=== PATIENT | male | born 1970 | race Caucasian/White ===

== ENCOUNTER 2018-09-05 10:04 | Emergency (ER) | payer OTHER ==
[~2018-09-05] VITALS: Ht 177.8 cm; Wt 58.5 kg
[~2018-09-05 10:04] MED LIST: ATIVAN1 MG PO; KEFLEX500 MG PO; KEPPRA XR750 MG PO; LAMICTAL 25 MG25 M1; LAMICTAL XR100 MG; LAMICTAL XR200 MG PO; OXCARBAZEPINE300 M1; PREDNISONE 20 M20 M1 PO; ZOFRAN4 MG PO; ZONEGRAN100 MG
[2018-09-05] MEDS ORDERED: DILANTIN100 MG PO ×2 (10:26)
[2018-09-05 11:39] LABS: ABSOLUTE EOSINOPHILS 0.1 thou/uL (0.0-0.7); ABSOLUTE LYMPHOCYTES 1.3 thou/uL (0.8-5.3); ABSOLUTE MONOCYTES 0.5 thou/uL (0.0-1.2); ABSOLUTE NEUTROPHILS 6.5 thou/uL (1.6-8.1); BASOPHILS 0.5 %; EOSINOPHILS 0.8 %; HEMATOCRIT 40.7 % (42.0-52.0); HEMOGLOBIN 13.7 gm/dL (14.0-18.0); LYMPHOCYTES 15.4 %; MCH 32.2 pg (26.0-34.0); MCHC 33.8 g/dL (28.0-37.0); MCV 95.5 fL (80.0-100.0); NUCLEATED RBCS 0 /100WBC; PLATELET COUNT* 241 thou/uL (150-400); POLYS 77.3 %; RBC 4.26 mil/uL (4.50-6.00); RDW-CV 14.2 % (10.5-14.5); WBC 8.4 thou/uL (4.0-11.0)
[2018-09-05 11:47] LABS: APTT 29.6 Seconds (25.0-31.3); PROTIME 10.2 Seconds (9.20-11.50)
[2018-09-05 11:57] LABS: ALBUMIN 3.3 g/dL (3.4-5.0); ALKALINE PHOSPHATASE 146 U/L (46-116); ANION GAP 4 mmol/L (7-16); BUN 16 mg/dL (7-18); CALCIUM 8.5 mg/dL (8.5-10.1); CHLORIDE 106 mmol/L (98-107); CO2 32 mmol/L (21-32); GLUCOSE 95 mg/dL (70-99); MAGNESIUM 1.7 mg/dL (1.8-2.4); POTASSIUM 4.7 mmol/L (3.5-5.1); SGOT 16 U/L (15-37); SGPT 13 U/L (30-65); SODIUM 142 mmol/L (136-145); TOTAL BILIRUBIN 0.2 mg/dL (<0.1-1.0); TOTAL PROTEIN 7.4 g/dL (6.4-8.2); TROPONIN-I LEVEL <0.06 ng/mL (<0.06)
[2018-09-05 12:00] LABS: AMP/METHAMP Negative (Negative); BARBITURATES Negative (Negative); BENZODIAZEPINES Negative (Negative); COCAINE Negative (Negative); METHADONE Negative (Negative); OPIATES Negative (Negative); PCP Negative (Negative); THC Negative (Negative)
[2018-09-05 12:02] LABS: URINE BILIRUBIN NEGATIVE (Negative); URINE BLOOD TRACE (Negative); URINE CLARITY CLEAR; URINE COLOR YELLOW; URINE GLUCOSE-RANDOM NEGATIVE (Negative); URINE KETONES NEGATIVE (Negative); URINE LEUKOCYTES-REFLEX NEGATIVE (Negative); URINE NITRITE-REFLEX NEGATIVE (Negative); URINE PROTEIN NEGATIVE (Negative); URINE UROBILINOGEN 0.2 E.U./dl (0.2-1.0)
[2018-09-05 12:35] VITALS: BP 128/77
--- NOTE | 2018-09-05 14:18 | EKG ---
[place] [address] ELECTROCARDIOGRAM REPORT Name: CAMDEN MONTERO Room: [facility]#: [id number] Admission: 09/05/18 Attend Phys: Discharge: 09/05/18 Date of : 72 Report #: [id number] THIS REPORT FOR: //name// [facility] ED Test Date: 2018-09-05 Test Time: 11:17:53 Pat Name: CAMDEN MONTERO Department: Room: Gender: M Lay Out Carpenter: Cade GONZALES : 1970 Requested By: Jesus Alberto Shultz Order Number: [id number] MD: Markos Leon Measurements Intervals [place] Rate: 79 P: 74 [place]: 150 QRS: 76 QRSD: 87 T: 41 QT: 379 QTc: 435 Interpretive Statements Sinus rhythm Low voltage, extremity leads ST elev, probable normal early repol pattern No previous ECG available for comparison Electronically Signed On 09-05-2018 14:17:59 CDT by Markos Leon [email or web address] <ELECTRONICALLY SIGNED> By: Markos Leon MD, [facility] 09/05/18 1417 1117 16 Markos Leon MD, FACC /EPI
== END 2018-09-05 12:40 | disposition short-term general hospital (02) ==
LOC: M.ERS 10:04
PROVIDERS: Physician Assistant
DX: S06.5X0A Traumatic subdural hemorrhage without loss of consciousness, initial encounter (principal); T42.0X1A Poisoning by hydantoin derivatives, accidental (unintentional), initial encounter; F17.200 Nicotine dependence, unspecified, uncomplicated; Y92.89 Other specified places as the place of occurrence of the external cause; V03.10XA Pedestrian on foot injured in collision with car, pick-up truck or van in traffic accident, initial encounter; Y93.89 Activity, other specified; Y99.8 Other external cause status

== ENCOUNTER 2020-05-15 19:00 | Emergency (ER) | payer OTHER ==
[~2020-05-15] VITALS: Ht 180.3 cm; Wt 59.0 kg
[~2020-05-15 19:00] MED LIST changes: +DILANTIN100 MG PO
[2020-05-15 19:44] VITALS: BP 148/98
== END 2020-05-15 19:44 | disposition home or self-care (01) ==
LOC: M.ERS 19:00
DX: U07.1 COVID-19 (principal); Z79.899 Other long term (current) drug therapy